=== PATIENT | male | born 1975 | race African-American/Black ===

== ENCOUNTER 2017-09-14 13:41 | Emergency (ER) | payer OTHER ==
[~2017-09-14] VITALS: Ht 180.3 cm; Wt 104.3 kg
[2017-09-14 13:48] VITALS: BP 137/83
[2017-09-14] MEDS ORDERED: SULFAMETHOXAZO1 EAC1 PO (14:31)
[2017-09-14] MEDS ORDERED: NAPROSYN500 M1 PO (14:39)
--- NOTE | 2017-09-14 14:40 | ED ANIMAL BITE/WOUND CHECK ---
History of Present Illness General Chief Complaint: Suture Removal/Wound Recheck Stated Complaint: PT HAS PACKING REMOVE UNDER UNDER ARMPIT Source: patient, family Exam Limitations: no limitations Vital Signs & Intake/Output Vital Signs & Intake/Output Vital Signs Date Time Temp Pulse Resp B/P B/P Pulse O2 O2 Flow FiO2 Mean Ox Delivery Rate 09/14 1348 98.2 79 18 137/83 98 Room Air Allergies Coded Allergies: Penicillins (Severe, HIVES 09/14/17) Reconcile Medications Naproxen (Naprosyn) 500 MG TABLET 1 TAB PO BID PRN pain Sulfamethoxazole/Trimethoprim (Sulfamethoxazole-Tmp Ds Tablet) 800 MG-160 MG TABLET 1 TAB PO BID ANTIBIOTIC, INFECTION (Reported) Triage Note: 42 YO MALE TO TRIAGE FOR PACKING REMOVAL FROM L ARMPIT. PLACED 2 NIGHTS AGO AT [facility]. Triage Nurses Notes Reviewed? yes Onset: Gradual Duration: day(s): (2) Timing: recent history Injury Environment: home Is Injury an Animal Bite? No Severity: moderate Severity Numbers: 6 Modifying Factors: Improves With: immobilization. Worsens With: movement. HPI: Patient is a 42-year-old male with history of abscesses presenting to the emergency Department chief complaint of packing removal from left axilla region. He reports he was seen and evaluated at another facility 2 days ago and had an abscess drained and packed. Was told to seek medical attention today to get the packing removed. Denies any increased pain. No nausea or vomiting. No fevers or chills. Denies any drainage from the area. Patient is currently on antibiotics. (Norma Quintero) Past History Travel History Traveled to [place] past 21 day No Medical History Any Pertinent Medical History? 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 No (Norma Quintero) Review of Systems Review of Systems Constitutional: Reports: no symptoms. Comments Review of systems: See HPI, All other systems negative. Constitutional, no chills fever or weight loss HEENT: No visual changes no sore throat no congestion Cardiovascular: No chest pain ,palpitation Skin, no jaundice Respiratory: No dyspnea cough sputum or hemoptysis GI: No nausea no vomiting Muscle skeletal: no back pain, no neck pain, Neurologic: No numbness no confusion Psych: No stress anxiety Immunology: No splenectomy or history of AIDS (Norma Quintero) Physical Exam Physical Exam General Appearance: well developed/nourished, no apparent distress, alert, awake , comfortable Comments: Well-developed well-nourished person in no acute distress HEENT: Atraumatic, normocephalic Neck: Normal inspection Respiratory: No respiratory distress. Extremity: No edema Neuro: Alert oriented x3 Skin: Healing abscess approximately 2 cm x 2 cm in the left basilar region. Packing in place. No surrounding erythema, not warm to palpation in this area. Mildly tender. No palpable lymph nodes in the area. Psych: Mood and affect is normal, memory and judgment is normal. (Norma Quintero) Progress Differential Diagnosis: wound check, cellulitis, abscess Plan of Care: Current Medications Sig/Tesha Start time Last Medication Dose Stop Time Status Admin Ibuprofen 600 MG ONCE ONE 09/14 144 UNVr (Motrin) 09/14 1446 Comments: Packing removed that it was a. Dressing placed. He'll follow-up with his primary care physician and continue taking Atarax. He said prescribed. Patient given dose of ibuprofen in the emergency department. (Norma Quintero) Departure Departure Time of Disposition: 7 Disposition: HOME OR SELF CARE Condition: Stable Clinical Impression Primary Impression: Wound check, abscess Referrals: Singer GARNICA,Jose (PCP/Family) Additional Instructions: Follow-up with your primary care physician in the next 5-7 days. Return for worsening symptoms or concerns. Take naproxen as prescribed up with any pain. Warm compresses several times a day. Departure Forms: Customer Survey General Discharge Information Prescriptions: Current Visit Scripts Naproxen (Naprosyn) 1 TAB PO BID PRN pain #20 TAB (Norma Quintero) PA/AUTO BODY REPAIRMAN Co-Sign Statement Statement: ED Attending supervision documentation- [] I saw and evaluated the patient. I have also reviewed all the pertinent lab results and diagnostic results. I agree with the findings and the plan of care as documented in the PA's/AUTO BODY REPAIRMAN's documentation. [X] I have reviewed the ED Record and agree with the PA's/AUTO BODY REPAIRMAN's documentation. [] Additions or exceptions (if any) to the PAs/AUTO BODY REPAIRMAN's note and plan are summarized below: [] (Zoe GARNICA,Juan M Coffman)
== END 2017-09-14 14:58 ==
LOC: ERH 13:41
DX: Z48.00 Encounter for change or removal of nonsurgical wound dressing (principal)